=== PATIENT | male | born 1985 | race Caucasian/White ===

== ENCOUNTER 2022-10-14 05:55 | Emergency (ER) | payer SELFPAY ==
[2022-10-14] MEDS ORDERED: Lidocaine 1% 10 ML MDV INJECT ONE ×2 (06:00→07:45)
[2022-10-14] MEDS ORDERED: Lidocaine 1% 10 ML MDV ONE ×2 (06:01→07:45)
[2022-10-14] MEDS ORDERED: ceFAZolin 2 GM in Sodium Chloride 0.9% 50 ML IV ONE (06:15)
[2022-10-14] MEDS ORDERED: Lidocaine 2% 5 ML SDV INJECT ONE (07:41)
[2022-10-14] MEDS ORDERED: Acetaminophen/HYDROcodone 325-5 MG Tab PO ONE (08:33)
[2022-10-14] MEDS ORDERED: Ketorolac 30 MG/ML SDV IVPUSH ONE (08:34)
== END 2022-10-14 09:30 | disposition home or self-care (01) ==
LOC: JD.ED 05:55
DX: S62.660B Nondisplaced fracture of distal phalanx of right index finger, initial encounter for open fracture (principal); W27.0XXA Contact with workbench tool, initial encounter; Y99.0 Civilian activity done for income or pay
CPT/HCPCS: 12002; 73140; 96365; 96375; 99283; A9270; J0690; J1885; J3490